=== PATIENT | female | born 1995 | race Two or more races ===

== ENCOUNTER 2017-07-16 14:39 | Emergency (ER) | payer OTHER ==
[~2017-07-16] VITALS: Ht 160 cm; Wt 56.7 kg
[2017-07-16] MEDS ORDERED: Norco 7.5mg/325mg tab ORAL ONE (16:00)
[2017-07-16 16:02] LABS: APPEARANCE,URINE CLEAR; KETONES,URINE NEGATIVE (NEGATIVE); LEUKOCYTE ESTERASE ,URINE 2+ (NEGATIVE); NITRITE,URINE NEGATIVE (NEGATIVE); PH,URINE 6 (4.5-8.0); PROTEIN,URINE 1+ (NEGATIVE); UROBILINOGEN,URINE NORMAL MG/DL (0.0-1.0)
--- NOTE | 2017-07-16 16:19 | Emergency Room Report ---
History of Present Illness General Chief Complaint: Abdominal Pain Source: Patient Present Illness HPI 22-year-old female presents to the emergency department complaining of 9/10 in severity lower abdominal cramping since last night. Patient states that she regularly has these symptoms with the same character for several years. Mother is also present in states with agreement from patient that patient has had abdominal complaints since childhood. Mother states that patient was recently evaluated by PMD who did a stool exam and stated that it was normal. Mother states that patient was never evaluated by GI specialist in the past patient denies diarrhea, constipation, nausea or vomiting. Patient denies , fevers, chills, rashes. Patient states that her symptoms typically last about a day and a half and then resolve she reports episodes every few weeks denies correspondence with her menstrual cycle. Denies recent travel or ill contacts with similar symptoms . Denies CP, Palpitations, LOC, AMS, dizziness, Changes in Vision, Sensation, paresthesias, or a sudden severe headache. Allergies: Coded Allergies: No Known Allergies (Unverified , 06/06/12) Patient History Past Medical History: see triage record Past Surgical History: none Pertinent Family History: none Last Menstrual Period: 06/16/17 Now: No : 0 Reviewed Nursing Documentation: PMH: Agreed, PSxH: Agreed Nursing Documentation-PMH Past Medical History: No Stated History Review of Systems All Other Systems: negative except mentioned in HPI Physical Exam Vital Signs Date Time Temp Pulse Resp B/P (MAP) Pulse Ox O2 Delivery O2 Flow Rate FiO2 07/16/17 15:06 98.1 97 18 103/68 98 Room Air Sp02 EP Interpretation: reviewed, normal General Appearance: alert, GCS 15, non-toxic, mild distress Head: normocephalic, atraumatic ENT: hearing grossly normal, normal voice Neck: full range of motion Respiratory: lungs clear, normal breath sounds, speaking full sentences Cardiovascular #1: regular rate, rhythm, no edema Gastrointestinal: normal bowel sounds, soft, no guarding, no rebound, other - LLQ to deep palpation. Negative Trumbull signs, Negative MacBurney's sign, Negative Rosvigns Sign, Negative Psoas, No Peritoneal signs. Rectal: deferred Genitourinary: normal inspection, no CVA tenderness Musculoskeletal: back normal, gait/station normal, normal range of motion, non- tender Neurologic: alert, oriented x3, responsive, motor strength/tone normal, sensory intact, speech normal Skin: normal color, no rash, warm/dry, well hydrated Medical Decision Making PA Attestation Dr. Sarabia is my supervising Physician whom patient management has been discussed with. Diagnostic Impression: Primary Impression: Abdominal pain ER Course 22-year-old female presents to the emergency department complaining of 9/10 in severity lower abdominal cramping since last night. Patient states that she regularly has these symptoms with the same character for several years. Mother is also present in states with agreement from patient that patient has had abdominal complaints since childhood. Mother states that patient was recently evaluated by PMD who did a stool exam and stated that it was normal. Mother states that patient was never evaluated by GI specialist in the past patient denies diarrhea, constipation, nausea or vomiting. Patient denies , fevers, chills, rashes. Patient states that her symptoms typically last about a day and a half and then resolve she reports episodes every few weeks denies correspondence with her menstrual cycle. Denies recent travel or ill contacts with similar symptoms . Denies CP, Palpitations, LOC, AMS, dizziness, Changes in Vision, Sensation, paresthesias, or a sudden severe headache. Ddx considered but are not limited to Diverticulitis, acute appy, diarrhea,UC, PUD, GE, pancreatitis, gallstone, colitis just to name a few. Vital signs: are WNL, pt. is afebrile H&PE are most consistent with chronic remitting abdominal pain with normal PE other than some TTP to deep palpation of LLQ, no signs to suggest acute abdomen , or appendicitis at this time. ORDERS: -UA: Unremarkable -Urine HCg: Negative ED INTERVENTIONS: -. zantac, zofran , and norco PO . -I have discussed with this patient has had ongoing symptoms intermittently with consistent character for several years I feel that this is more of a chronic condition and not an acute emergent condition. I discussed with this patient that she won't benefit most from GI specialist evaluation. I discussed with this patient to return to the emergency department with worsening or new symptoms. At this time I feel this patient is stable for close outpatient followup. Both patient and mother verbalized their understanding and agreement with this proposed treatment plan DISCHARGE: At this time pt. is stable for d/c to home. Will provide printed patient care instructions, and any necessary prescriptions. Care plan and follow up instructions have been discussed with the patient prior to discharge. Labs Test 07/16/17 15:45 Urine Color Yellow Urine Appearance Clear Urine pH 6 (4.5-8.0) Urine Specific [place] 1.015 (1.005-1.035) Urine Protein 1+ (NEGATIVE) Urine Glucose (UA) Negative (NEGATIVE) Urine Ketones Negative (NEGATIVE) Urine Occult Blood 1+ (NEGATIVE) Urine Nitrite Negative (NEGATIVE) Urine Bilirubin Negative (NEGATIVE) Urine Urobilinogen Normal MG/DL (0.0-1.0) Urine Leukocyte Esterase 2+ (NEGATIVE) Urine RBC 0-2 /HPF (0 - 2) Urine WBC 2-4 /HPF (0 - 2) Urine Squamous Epithelial Cells Few /LPF (NONE/OCC) Urine Bacteria Few /HPF (NONE) Urine HCG, Qualitative Negative Last Vital Signs Date Time Temp Pulse Resp B/P (MAP) Pulse Ox O2 Delivery O2 Flow Rate FiO2 07/16/17 15:06 98.1 97 18 103/68 98 Room Air Disposition: HOME, SELF-CARE Condition: Stable Scripts Acetaminophen With Codeine (T#3) (TYLENOL #3 TAB*) Y Tab 1 TAB ORAL Q6HR Y for For Pain, #9 TAB Prov: Anahy Givens 07/16/17 Mag Hydrox/Al Hydrox/Simeth (ALUM-MAG HYDROXIDE-SIMETH LIQ) 360 Ml Oral.susp 30 ML PO BID, #360 ML Prov: Anahy Givens 07/16/17 Patient Instructions: Abdominal Pain, Adult Additional Instructions: Take medications as directed. Follow up with a GI SPECIALIST in 3-5 days, even if your symptoms have resolved. Return sooner to ED if new symptoms occur, or current symptoms become worse. - Please note that this Emergency Department Report was dictated using fotopediamicrofilm clerk technology software, occasionally this can lead to erroneous entry secondary to interpretation by the dictation equipment. Anahy Givens Jul 16, 2017 16:19
[2017-07-16 16:20] LABS: BACTERIA,URINE FEW /HPF; RBC,URINE 0-2 /HPF (0 - 2); SQUAMOUS EPITHELIAL CELL,UR FEW /LPF (NONE/OCC)
[2017-07-16] MEDS ORDERED: ACETAMINOPHEN-1 EAC1 ORAL (16:28)
[2017-07-16] MEDS ORDERED: ALUM-MAG HYDRO360 ML PO (16:28)
[2017-07-16 16:45] VITALS: BP 90/76
== END 2017-07-16 16:45 | disposition home or self-care (01) ==
LOC: EMR 16:35
DX: R10.30 Lower abdominal pain, unspecified (principal)
CPT/HCPCS: 81003; 81025; 99284

== ENCOUNTER 2018-03-20 23:31 | Observation (INO) | payer OTHER, MEDICAID ==
[~2018-03-20] VITALS: Ht 157.5 cm; Wt 56.7 kg
[~2018-03-20 23:31] MED LIST: ACETAMINOPHEN-1 EAC1 ORAL; ALUM-MAG HYDRO360 ML PO
[2018-03-20 23:57] VITALS: BP 104/63
[2018-03-21] MEDS ORDERED: Morphine Sulfate 4mg/ml Inj (IV USE ONLY) IVP ONE ×3 (00:15→07:30)
[2018-03-21 00:31] LABS: BILIRUBIN, URINE NEGATIVE (NEGATIVE); COLOR,URINE PALE YELLOW; GLUCOSE, URINE (UA) NEGATIVE (NEGATIVE); KETONES,URINE NEGATIVE (NEGATIVE); LEUKOCYTE ESTERASE ,URINE NEGATIVE (NEGATIVE); NITRITE,URINE NEGATIVE (NEGATIVE); PH,URINE 8 (4.5-8.0); PROTEIN,URINE NEGATIVE (NEGATIVE); UROBILINOGEN,URINE NORMAL MG/DL (0.0-1.0)
[2018-03-21 00:35] LABS: BASOPHILS % (AUTO) 0.6 % (0.0-2.0); EOSINOPHILS % (AUTO) 1.5 % (0.0-3.0); HEMATOCRIT 42.4 % (37.0-47.0); HEMOGLOBIN 14.5 G/DL (12.0-16.0); LYMPHOCYTES % (AUTO) 22.2 % (20.0-45.0); MEAN CORPUSCULAR VOLUME 89 FL (80-99); MONOCYTES % (AUTO) 5.7 % (1.0-10.0); PLATELET COUNT 236 K/UL (150-450); RED BLOOD COUNT 4.76 M/UL (4.20-5.40); WHITE BLOOD COUNT 16.8 K/UL (4.8-10.8)
[2018-03-21 00:40] LABS: ANION GAP 7 mmol/L (5-15); BLOOD UREA NITROGEN 10 mg/dL (7-18); CALCIUM 9.1 MG/DL (8.5-10.1); CARBON DIOXIDE 27 MMOL/L (21-32); CHLORIDE 105 MMOL/L (98-107); CREATININE 0.8 MG/DL (0.55-1.30); SODIUM 139 MMOL/L (136-145)
[2018-03-21 00:44] LABS: ALANINE AMINOTRANSFERASE 22 U/L (12-78); ALBUMIN 3.9 G/DL (3.4-5.0); ALKALINE PHOSPHATASE 47 U/L (46-116); ASPARTATE AMINO TRANSFERASE 18 U/L (15-37); BILIRUBIN,TOTAL 0.4 MG/DL (0.2-1.0)
[2018-03-21] MEDS ORDERED: Lidocaine 2% Visc 15ml soln ORAL ONE (00:45)
[2018-03-21] MEDS ORDERED: Dicyclomine HCl 10mg/5ml oral soln ORAL ONE (00:45)
--- NOTE | 2018-03-21 00:48 | Emergency Room Report ---
History of Present Illness General Chief Complaint: Abdominal Pain Source: Patient Present Illness HPI Patient is a 22-year-old female presented after increased abdominal pain. Patient reports having increased pain to her lower abdomen. This had worsened recently. Patient reports having increased the pain despite normal bowel movements. The pain was severe nature. The patient reports having prior history of the possible colitis. She had not been seen by GI specialist. The patient denies any fever. The pain is primarily in the left lower abdomen. The pain was constant in nature.The patient had previous hernia surgery. Allergies: Coded Allergies: No Known Allergies (Unverified , 06/06/12) Patient History Past Medical History: see triage record Reviewed Nursing Documentation: PMH: Agreed; PSxH: Agreed Nursing Documentation-PMH Hx Gastrointestinal Problems: Yes - Collitis Review of Systems All Other Systems: negative except mentioned in HPI Physical Exam Vital Signs Date Time Temp Pulse Resp B/P (MAP) Pulse Ox O2 Delivery O2 Flow Rate FiO2 03/20/18 23:40 98.5 120 23 104/63 96 Room Air 98.4 Sp02 EP Interpretation: reviewed, normal General Appearance: normal inspection, well appearing, no apparent distress, alert, GCS 15 Head: atraumatic ENT: normal ENT inspection, hearing grossly normal, normal voice Neck: normal inspection, full range of motion, supple, no bony tend Respiratory: normal inspection, lungs clear, normal breath sounds, no respiratory distress, no retraction, no wheezing Cardiovascular #1: regular rate, rhythm, no edema Gastrointestinal: normal inspection, normal bowel sounds, soft, tenderness Genitourinary: no CVA tenderness Musculoskeletal: normal inspection, back normal, normal range of motion Neurologic: normal inspection, alert, responsive, speech normal Psychiatric: normal inspection, judgement/insight normal, mood/affect normal Skin: normal inspection, normal color, no rash Medical Decision Making Diagnostic Impression: Primary Impression: Abdominal pain Additional Impression: Leukocytosis ER Course Patient presented for abdominal pain. Differential diagnoses included ischemic bowel, appendicitis, perforated viscus, abdominal aortic aneurysm, inferior myocardial infarction, viral gastroenteritis. Because of complexity of patient' s case laboratory testing and imaging studies were ordered.laboratory studies was notable for elevated white blood count. CT the abdomen pelvis read by radiology was read as normal. The urinalysis showed no evidence of infection.Patient was given IV fluids as well as IV pain medications. The patient was noted to be initially tachycardic with a heart rate in the 130s Dr. Chacon was contacted for inpatient management. EKG interpreted by me showed sinus tachycardia with a rate of [address] or T wave changes. Labs Test 03/21/18 00:12 White Blood Count 16.8 K/UL (4.8-10.8) Red Blood Count 4.76 M/UL (4.20-5.40) Hemoglobin 14.5 G/DL (12.0-16.0) Hematocrit 42.4 % (37.0-47.0) Mean Corpuscular Volume 89 FL (80-99) Mean Corpuscular Hemoglobin 30.5 PG (27.0-31.0) Mean Corpuscular Hemoglobin Concent 34.3 G/DL (32.0-36.0) Red Cell Distribution Width 11.0 % (11.6-14.8) Platelet Count 236 K/UL (150-450) Mean Platelet Volume 8.1 FL (6.5-10.1) Neutrophils (%) (Auto) 70.0 % (45.0-75.0) Lymphocytes (%) (Auto) 22.2 % (20.0-45.0) Monocytes (%) (Auto) 5.7 % (1.0-10.0) Eosinophils (%) (Auto) 1.5 % (0.0-3.0) Basophils (%) (Auto) 0.6 % (0.0-2.0) Prothrombin Time 10.3 SEC (9.30-11.50) Prothromb Time International Ratio 1.0 (0.9-1.1) Activated Partial Thromboplast Time 24 SEC (23-33) Urine Color Pale yellow Urine Appearance Cloudy Urine pH 8 (4.5-8.0) Urine Specific [place] 1.015 (1.005-1.035) Urine Protein Negative (NEGATIVE) Urine Glucose (UA) Negative (NEGATIVE) Urine Ketones Negative (NEGATIVE) Urine Occult Blood Negative (NEGATIVE) Urine Nitrite Negative (NEGATIVE) Urine Bilirubin Negative (NEGATIVE) Urine Urobilinogen Normal MG/DL (0.0-1.0) Urine Leukocyte Esterase Negative (NEGATIVE) Urine HCG, Qualitative Negative (NEGATIVE) Sodium Level 139 MMOL/L (136-145) Potassium Level 4.0 MMOL/L (3.5-5.1) Chloride Level 105 MMOL/L (98-107) Carbon Dioxide Level 27 MMOL/L (21-32) Anion Gap 7 mmol/L (5-15) Blood Urea Nitrogen 10 mg/dL (7-18) Creatinine 0.8 MG/DL (0.55-1.30) Estimat Glomerular Filtration Rate > 60 mL/min (>60) Glucose Level 108 MG/DL (74-106) Calcium Level 9.1 MG/DL (8.5-10.1) Total Bilirubin 0.4 MG/DL (0.2-1.0) Aspartate Amino Transf (AST/SGOT) 18 U/L (15-37) Alanine Aminotransferase (ALT/SGPT) 22 U/L (12-78) Alkaline Phosphatase 47 U/L (46-116) Total Protein 7.8 G/DL (6.4-8.2) Albumin 3.9 G/DL (3.4-5.0) Globulin 3.9 g/dL Albumin/Globulin Ratio 1.0 (1.0-2.7) Lipase 112 U/L (73-393) EKG Diagnostic Results Rate: tachycardiac Rhythm: NSR ST Segments: no acute changes Last Vital Signs Date Time Temp Pulse Resp B/P (MAP) Pulse Ox O2 Delivery O2 Flow Rate FiO2 03/21/18 00:24 98.4 03/20/18 23:57 23 104/63 96 Room Air 03/20/18 23:40 120 Status: unchanged Disposition: ADMITTED INPATIENT Ranjith Sarabia MD Mar 21, 2018 00:48
[2018-03-21 00:52] LABS: APPEARANCE,URINE CLOUDY
[2018-03-21] MEDS ORDERED: Isovue-300 100ml vial INJ PRN (02:30)
[2018-03-21 02:42] VITALS: BP 99/62
[2018-03-21] MEDS ORDERED: MARLISSA1 EACH PO (03:12)
[2018-03-21] MEDS ORDERED: TAZORAC30 G2 TP (03:12)
[2018-03-21 05:29] VITALS: BP 95/49
[2018-03-21 08:00] VITALS: BP 99/66
--- NOTE | 2018-03-21 08:55 | Diagnostic Imaging Report ---
Clinical Indication: Abdominal pain for 2 days Technique: No oral contrast utilized, per emergency room physician request IV administration nonionic contrast. Venous phase spiral acquisition obtained through the abdomen and pelvis. Multiplanar reconstructions were generated. Total dose length product 597.62 mGycm. CTDIvol(s) 11.86 mGy. Dose reduction achieved using automated exposure control Comparison: 04/08/2013 Findings: Appendix is normal. No evidence of diverticulosis or diverticulitis. No small bowel distention. Small amount of free fluid is seen in the pelvis. No free intraperitoneal gas. Distal esophagus, stomach, duodenum are unremarkable. Previously demonstrated right lobe liver cyst is no longer evident. The liver is unremarkable. The gallbladder, bile ducts, pancreas, spleen, adrenals, kidneys are all unremarkable. No retroperitoneal or mesenteric mass or adenopathy. No pelvic mass or adenopathy. The included lung bases are clear. The bones are unremarkable. Slight irregularity of the endplates adjoining the L5-S1 disc appears unchanged, likely developmental in nature. Impression: Negative This agrees with the preliminary interpretation provided overnight by [facility] teleradiology service. The CT scanner at [facility] is accredited by the [employer] and the scans are performed using protocols designed to limit radiation exposure to as low as reasonably achievable to attain images of sufficient resolution adequate for diagnostic evaluation.
[2018-03-21] MEDS ORDERED: Morphine Sulfate 2mg/ml Inj(IV/IM USE ONLY) IVP PRN ×2 (09:30→11:30)
[2018-03-21] MEDS ORDERED: Ketorolac 30mg Inj IV PRN ×2 (09:45→16:30)
--- NOTE | 2018-03-21 11:29 | General Progress Note ---
Progress Note Progress Note [id number] full consult dictated Sydney Chacon MD Mar 21, 2018 11:29
[2018-03-21] MEDS ORDERED: [UNRECOGNIZED DRUG - SUPPLY] MISC ONE (11:45)
[2018-03-21 12:00] VITALS: BP 105/67
[2018-03-21] MEDS ORDERED: Dicyclomine HCl 10mg/5ml oral soln ORAL PRN (13:26)
[2018-03-21] MEDS ORDERED: Piperacillin/Tazobactam 3.375 GM in NS 110 ML IVPB SCH (14:00)
--- NOTE | 2018-03-21 15:41 | Diagnostic Imaging Report ---
Indication: Abdominal pain Technique: Jalloh-scale and duplex images of the upper abdomen were obtained Comparison: Reference made to CT scan of earlier the same day Findings: Gallbladder is unremarkable, without stones, wall thickening, nor pericholecystic fluid. Sonographic Arteaga's sign is negative. Common bile duct measures 5 mm in diameter. No intrahepatic biliary ductal dilatation. Liver demonstrates normal echogenicity, no focal abnormality. Portal vein and hepatic veins are patent. Pancreas is unremarkable. Spleen is unremarkable. Left kidney measures 10.1 cm in length. Right kidney measures 10 cm length. Both kidneys demonstrate normal echogenicity. There is no hydronephrosis. Apparent echogenic foci in the renal sinuses are probably artifactual, as no calculi are demonstrated on recent CT scan . Non-aneurysmal abdominal aorta . Impression: Negative
[2018-03-21 16:00] VITALS: BP 95/51
--- NOTE | 2018-03-21 16:56 | Diagnostic Imaging Report ---
Indication: Abdominal pain Technique: Transabdominal images. No transvaginal images; patient not sexually active Comparison: Reference made to CT scan of earlier the same day Findings: Uterus measures 7.8 cm length by 3.3 cm AP. Endometrium measures 7 mm thick. No definite myometrial abnormality. Right ovary measures 3.1 cm in length. Left ovary measures 3.4 cm in length. No adnexal mass. Normal ovarian blood flow demonstrated. Equivocal trace free cul-de-sac fluid Impression: Somewhat limited exam, due to lack of endovaginal imaging Equivocal trace free fluid, presumed physiologic if real Otherwise unremarkable
--- NOTE | 2018-03-21 17:45 | Consultation ---
DATE OF CONSULTATION: 03/21/2018 CONSULTING PHYSICIAN: Ian Ram M.D. REFERRING PHYSICIAN: Sydney Chacon M.D. CHIEF COMPLAINT: Abdominal pain. HISTORY OF PRESENT ILLNESS: This is a 22-year-old female, who presented to the hospital complaining of lower abdominal pain. According to her, she had the same symptoms about 8 months ago that somebody told her she might have colitis. At this time, between the last attack until this attack, she was doing fine. The patient complained of some lower abdominal pain. No diarrhea. No bleeding. No nausea. No vomiting. No hematemesis. No melena. PAST MEDICAL HISTORY: History of headaches. PAST SURGICAL HISTORY: Inguinal hernia repair. ALLERGIES: No known drug allergies. MEDICATIONS: Please see medication reconciliation list. SOCIAL HISTORY: The patient denies any tobacco, alcohol, or illicit drug abuse. FAMILY HISTORY: Noncontributory. REVIEW OF SYSTEMS: A 10-point review of systems was performed and pertinent positives are in HPI. PHYSICAL EXAMINATION: VITAL SIGNS: Temperature 98.7, pulse 85, respirations 16, blood pressure 99/50. HEENT: Normocephalic and atraumatic. Sclerae anicteric. NECK: Supple. No evidence of obvious lymphadenopathy. HEART: Regular rhythm. Plus S1, S2. No obvious murmur. LUNGS: Clear to auscultation bilaterally. ABDOMEN: Positive bowel sounds. Soft, nontender. No rebound. No guarding. No peritoneal sign. EXTREMITIES: No cyanosis, no clubbing, no edema. LABORATORY DATA: White count 16.8, hemoglobin 14, hematocrit 42, platelet count is 236,000. Chem-[address] of the abdomen and pelvis was done which was nondiagnostic ASSESSMENT AND PLAN: This is a 22-year-old female with bilateral abdominal pain, mostly right compared to the left, etiology at this time is unknown. Differential diagnosis would be ovarian cyst, pelvic pathology most likely. The patient carries the diagnosis of colitis in the past, but there is no evidence of any at this time. Anemia, rectal bleeding, diarrhea, so I doubt the patient has colitis per se. I offered the patient to have a pelvic ultrasound, but the patient in front of her mother and grandmother mentioned that she is a virgin, so she will not be able to get at this time. Our plan will be to follow up laboratories, advance her diet, get Bentyl p.r.n. for abdominal cramps, considering pelvic ultrasound if the patient changes her mind. Meanwhile, we can also send the urine-tox. I want to thank Dr. Chacon for this kind referral. Ian Ram M.D. DR: Farideh JOB#: [id number] CC: Sydney Chacon M.D.; Fax#: [phone]
[2018-03-21 20:00] VITALS: BP 120/73
--- NOTE | 2018-03-21 23:30 | History and Physical Report ---
DATE OF ADMISSION: 03/21/2018 REASON FOR ADMISSION: Abdominal pain. HISTORY OF PRESENT ILLNESS: The patient is a pleasant 22-year-old female, well known to me from an outside practice. She has a history of colitis apparently about 8 months ago. She has lower abdominal pain. She went to emergency room. She was told that she has a colitis and she need to see a GI doctor as an outpatient. The patient's condition got improved and she was doing okay until yesterday afternoon, which she started having severe bilateral right and lower quadrant pain. She has had a bowel movement 3 to 4 times, which is more than her regular. She denies having any melena, hematemesis or hematochezia. She came to ER. In the ER, the patient was afebrile. She did not have any chills or any symptoms. She had a CT scan, which was negative for appendicitis or colitis. The patient was given pain medication, morphine, which is causing her to have one episode of nausea and vomiting. The patient was found to have WBC count of 17,000 and was admitted for observation. PAST MEDICAL HISTORY: As above. PAST SURGICAL HISTORY: History of right hernia repair at age of 15. MEDICATIONS: Home medications ulcerative colitis. SOCIAL HISTORY: She is a college student at [employer]. There is no history of tobacco, alcohol or drug use. FAMILY HISTORY: Father and grandfather had a history of cyst in the colon. Otherwise, there is no other history was reported. REVIEW OF SYSTEMS: GENERAL: She denies any weight loss, weight gain, fever, chills or night sweats. HEAD AND NECK: Denies any dysphagia, odynophagia, blurry vision, headache, or neck stiffness. PULMONARY: No shortness of breath. No cough or sputum. CARDIOVASCULAR: Denies any chest pain or palpitation, although the patient found to be severely tachycardic in the emergency room. GASTROINTESTINAL: She had 1 episode of vomiting in the ER after she received morphine and bilateral lower quadrant pain, guarding and rebound and had about 3 to 4 bowel movements, which the last time was loose, but denies having any melena or hematemesis or hematochezia. GENITOURINARY: Denies any dysuria, frequency, or hematuria. The patient is currently is on oral contraceptives and not sexually active. PHYSICAL EXAMINATION: VITAL SIGNS: The patient had temperature of 98 degrees, blood pressure 104/63, pulse rate is 75, was in the ER of 120. HEAD AND NECK: No JVP. No LAD. No thyromegaly. Extraocular movement intact. Pupils are reactive to light and accommodation. LUNGS: Clear to auscultation. CARDIAC: Regular rate and rhythm. S1 and S2. No murmur. No rub. ABDOMEN: Soft. She has bilateral lower quadrant tenderness and guarding and rebound. LABORATORY AND DIAGNOSTIC DATA: The patient has sodium of 139, potassium of 4, chloride 105, bicarbonate 27, BUN of 10, creatinine of 0.8, and glucose of 108. Calcium of 9.1. AST of 18 and ALT of 22. Albumin of 3.98. CBC revealed WBC count of 16.8, hemoglobin of 14, hematocrit of 42, and platelet count of 236. UA revealed specific gravity of 1.015, pH of 8, otherwise negative. The patient had a CT of the abdomen, which at this time was negative. ASSESSMENT: 1. Bilateral quadrant abdominal pain, mostly in bilateral lower quadrant area. 2. Leukocytosis. 3. Tachycardia. PLAN: To obtain a GI consultation. IV hydration and NPO for now. Ultrasound of the pelvis to evaluate possible ovarian cyst rupture, although the patient was on the oral contraceptive. With the start the patient on IV antibiotics for possible colitis. We will obtain a GI consult. Sydney Chacon M.D. DR: JIL JOB#: [id number] CC:
--- NOTE | 2018-03-28 00:54 | Cardiology Report ---
APPROVED REPORT EKG Measurement Heart [id number] Sinus tachycardia Otherwise normal ECG
--- NOTE | 2018-03-28 12:07 | Discharge Summary ---
Discharge Summary Discharge Summary _ DATE OF ADMISSION: 03/21/2018 DATE OF DISCHARGE: 03/21/2018 REASON FOR ADMISSION: 22 years old female without past medical history presented with increased abdominal pain. Pain was located in the left lower abdomen, and was constant and severe. Patient reported normal bowel movement . Patient reported prior history of possible colitis. Patient had not seen GI specialist. She denied fever, chills. pain located in the left lower abdomen ,constant, severe. Upon evaluation vital signs reveal tachycardia with heart rate of 120, blood pressure was stable , no fever. CT of the abdomen and pelvis was negative. Laboratory workup revealed leukocytosis with WBC 16.8, stable hemoglobin and hematocrit. Stable electrolytes, renal parameters and LFT, Urinalysis negative for evidence of UTI. Patient admitted with diagnosis of abdominal pain and leukocytosis CONSULTANTS: GI specialist Dr. Ram [facility]SE: Patient admitted for observation. Patient was initially kept nothing by mouth and started on IV hydration. Pain management was addressed. Antiemetics provided as needed. GI consult was requested. Pelvic ultrasound revealed trace free fluid , presumed physiological if real, otherwise unremarkable. Abdominal ultrasound was negative. GI specialist seen and evaluated the patient. According to GI specialist , patient unlikely had colitis given that CT of abdomen was negative, no anemia , no rectal bleeding, no diarrhea. Patient started on diet and was slowly advanced as tolerated. Patient was able to tolerate diet. Pain was controlled. Patient was discharged home with outpatient follow-up with the primary care provider next week. Due to rapid and unexpected improvement in patient's condition, patient was discharged in one day. FINAL DIAGNOSES: Abdominal pain Leukocytosis DISCHARGE INSTRUCTIONS: Patient was discharged home Follow up with primary care provider in one week. I have been assigned to dictate discharge summary for this account. I was not involved in the patient's management. Sussy Pineda NP Mar 28, 2018 12:07
== END 2018-03-21 22:00 | disposition home or self-care (01) ==
LOC: EMR 03-21 02:46 → INTOOBSV 03-21 03:00 → 2E 03-21 03:00 → EDBEDREQ 03-21 06:18 → EDBEDREQSVC 03-21 06:28 → EDBEDREQ 03-21 06:34 → 2E 03-21 08:17
DX: R10.32 Left lower quadrant pain (principal); R10.31 Right lower quadrant pain; D72.829 Elevated white blood cell count, unspecified; R00.0 Tachycardia, unspecified; Z87.19 Personal history of other diseases of the digestive system
CPT/HCPCS: 36415; 74177; 76700; 76856; 80053; 81003; 81025; 83690; 85025; 85610; 85730; 93005; G0378; J2270; J2405; J2543; Q9967